=== PATIENT | female | born 1985 | race Caucasian/White ===

== ENCOUNTER 2018-01-20 07:33 | Outpatient (CLI) | payer OTHER ==
--- NOTE | 2018-01-20 10:48 | CT ---
CT OF ABDOMEN AND PELVIS PERFORMED WITHOUT CONTRAST ENHANCEMENT: History: Right sided abdomen pain. Comparison: Exam performed at [facility], 03-03-16. FINDINGS: The lung bases are clear. The liver, spleen, and pancreas regions appear unremarkable. Gallbladder has been removed. Right and left adrenal glands are normal in size. There is a lower pole nonobstructing left renal gustavo culus which measures 6 mm. This is larger than on the previous examination. There is also a right radha ed renal calculus, more oblong in shape, measuring 8-9 mm in maximal dimension. There is right sided hydronephrosis and hydroureter which is not related to this calculus. The dilatation of the right ure ter extends to the pelvic brim. It is difficult to follow the ureter distal to this although I see wh at appears to be a dilated ureter all the way to the bladder. The bladder is distended which may part ially account for this dilatation. The left collecting system is minimally distended, fairly consiste nt with the bladder distention. There is no significant periaortic or mesenteric lymphadenopathy. CT OF PELVIS PERFORMED WITHOUT CONTRAST ENHANCEMENT: The bladder is distended. There is no adenopathy or mass effect. Fat containing periumbilical hernia is seen. No significant bony findings. IMPRESSION: 1. Bilateral renal calculi with right sided hydronephrosis and hydroureter with minimal dilatation of the left collecting system. These changes could just be on the basis of the degree of bladder disten tion although the right sided dilatation is greater than would be expected and is definitely increase d as compared to the 03-03-16 study. 2. Normal appendix. POS: [facility]
== END 2018-01-20 07:34 | disposition home or self-care (01) ==
LOC: CT 07:33
PROVIDERS: ATTEND Urology
DX: N20.0 Calculus of kidney (principal); N13.30 Unspecified hydronephrosis; N13.4 Hydroureter
CPT/HCPCS: 36415; 74176; 84702

== ENCOUNTER 2018-01-22 06:05 | Day surgery (SDC) | payer OTHER ==
[2018-01-21 16:15] VITALS: BMI 29.0
[2018-01-22] MEDS ORDERED: Levofloxacin 500 mg/D5W 100 ml Premix Bag ONE (06:51)
[2018-01-22] MEDS ORDERED: Fentanyl 250 MCG/5 ML VIAL ONE ×2 (06:57→09:13)
[2018-01-22] MEDS ORDERED: Midazolam HCl 2 mg/2 ml Vial ONE (06:57)
[2018-01-22] MEDS ORDERED: Iothalamate Meglumine 60% 50 ML VIAL FS ONE (07:21)
[2018-01-22] MEDS ORDERED: Phenazopyridine HCl 97.5 MG TABLET ONE (08:47)
[2018-01-22] MEDS ORDERED: Oxybutynin 5 MG TAB ONE (08:47)
[2018-01-22] MEDS ORDERED: Ondansetron HCl/PF 4 MG/2 ML Vial IVP PRN (09:00)
[2018-01-22] MEDS ORDERED: Meperidine HCl/PF 25 MG/ML VIAL SLOW IVP PRN (09:00)
[2018-01-22] MEDS ORDERED: Meperidine HCl/PF 25 MG/ML VIAL IV PRN (09:00)
[2018-01-22] MEDS ORDERED: Promethazine HCl 25 MG/ML VIAL IM/IV PRN (09:00)
--- NOTE | 2018-01-22 09:01 | RAD ---
ABDOMEN ONE VIEW: HISTORY: Surgery. Renal calculi. COMPARISON: 01/14/2013 CORRELATION: CT, renal stone, 01/20/2018. FINDINGS: There are surgical clips in the right upper quadrant. The bowel gas pattern is nonspecific. No radi ographic evidence of calcification is projecting over either expected renal silhouette. No calcifica tion is projected over either pelvis. IMPRESSION: Unremarkable one view abdomen. POS: [facility]
--- NOTE | 2018-01-22 09:22 | OP ---
DATE OF PROCEDURE: 01/22/2018 PREOPERATIVE DIAGNOSES: 1. A 32-year-old female with history of recurrent kidney stone, prior history of distal ureteral stone impacted with ureteral narrowing, treated and resolved. 2. Recent right hydronephrosis with no definite stone seen in the distal ureter. 3. Right nonobstructing 8 mm renal pelvic stone, left lower pole 6 mm nonobstructing renal stone. POSTOPERATIVE DIAGNOSES: 1. A 32-year-old female with history of recurrent kidney stone, prior history of distal ureteral stone impacted with ureteral narrowing, treated and resolved. 2. Recent right hydronephrosis with no definite stone seen in the distal ureter. 3. Right nonobstructing 8 mm renal pelvic stone, left lower pole 6 mm nonobstructing renal stone. PROCEDURE: Cystoscopy, right retrograde, 6 x 26 double-J ureteral stent placement with dangler taped to pubic symphysis, rigid and flexible ureteroscopy , flexible pyeloscopy, laser lithotripsy of right renal stone. SURGEON: Kathrin Hernandez D.O. ANESTHESIA: General. COMPLICATIONS: None apparent. SPECIMEN: None. INTRAOPERATIVE FINDINGS: 1. Right hydronephrosis, resolved. 2. No evidence of right ureteral stricture or ureteral stone 3. Right renal pelvic stone migrated into the lower pole. INDICATIONS FOR PROCEDURE AND HISTORY: Luda is a 32-year-old female, with history of distal right impacted ureteral stone. She presented with ureteral narrowing due to impacted stone which has been treated. Subsequently, she had no evidence of hydronephrosis or recurrent ureteral stricture. A work- in appointment was provided to her as she presented with right flank pain. Due to worsening discomfort she presented today for surgical intervention. Staging CT demonstrated nonobstructing right renal pelvic stone, left 6 mm lower pole stone, there was a significant right hydronephrosis to the level of the bladder that was quite distended to the level of mid SI joint with no gross evidence of ureteral calculi. There was mild dilation of the left distal ureter as well, a differential diagnosis of ureteral stricture and possible stone debris, dilation secondary to distended bladder was also discussed with patient. She initially desired observation and advised regarding IVP if progressive discomfort, worsening or surgical intervention. I worked the patient in yesterday as she was not to take her NSAID, had worsening flank pain. She desired to proceed with surgical intervention for retrograde pyelogram to rule out ureteral stricture. The risk and complications and indications reviewed including, but not limited to, bleeding, pain, infection, injury to adjacent organs, urosepsis, stricture formation, possible secondary procedure was reviewed with her in detail and she desired to proceed without reservation. DESCRIPTION OF THE PROCEDURE: After an informed consent is signed, the patient is taken to the operating room, placed in a dorsal lithotomy position with the genital area prepped and draped in the usual surgical sterile fashion. A 21- [place] cystoscope was utilized for cystoscopy which demonstrated normal bladder. The UO's were identified in normal orthotopic position. An open- ended catheter was utilized to perform a retrograde pyelogram, which demonstrated no evidence of filling defect, hydronephrosis, stricture. The right hydronephrosis appeared to be resolved. At this time, I passed a 0.35 sensor wire to the level of the right upper pole without difficulty. A rigid ureteroscopy was then performed to rule out occult stone, stricture. I was able to pass the stone to the level of the mid ureter without any issues. There was no gross evidence of stricture or lesion stones. At this time, a 10 [place] dual-lumen access sheath was passed through the working wire and a second working wire, 0.35 super stiff was placed. The dual-lumen access sheath was then removed, and an 11/13 [place] x 26 cm navigator was passed without difficulty to the level of to the right proximal ureter. A flexible ureteroscope was then advanced over the wire to the level of the renal pelvis. The previous stone had migrated into the mid to lower pole and a 365 micron laser fiber was utilized to engage the stone and fragment into multiple tiny fragments. Using a dust setting, we laser lithotripsied the stone to tiny fragments, too small to basket extract. There was endoscopic clearance of the stone and the nidus that remained was dust-like caliber which she will pass. The ureter was then surveyed which demonstrated no evidence of ureteral mucosa trauma, again no significant stone debris or stricture was noted. A 11/13 [place] navigator passed without any issues. A 6 x 26 double-J ureteral stent with dangler was passed, the bladder was completely emptied and the wire removed. The string was then taped to the patient's pubic symphysis with Tegaderm. She was discharged with Omnicef until followup appointment, AZOGabriela. I did provide narcotics yesterday, therefore refill for narcotics is not provided as she has plenty from yesterday which I provided. She will follow up in my office next Thursday for stent pull and ambrose as a nurse visit, has routine followup with me in March. GISELA
[2018-01-22] MEDS ORDERED: Non-Formulary Medication 1 EACH PO PRN (09:24)
[2018-01-22] MEDS ORDERED: Morphine 2 MG/ML SYRINGE ONE ×2 (09:35→09:48)
[2018-01-22] MEDS ORDERED: Promethazine HCl 25 MG/ML VIAL ONE (09:38)
--- NOTE | 2018-01-22 09:52 | RAD ---
RIGHT RETROGRADE UROGRAM: DATE: 01/22/18. HISTORY: Bilateral renal calculi and right hydronephrosis and hydroureter. Stent placement. COMPARISON: Comparison is made with prior retrograde study on 01/14/13. FINDINGS/IMPRESSION: Initial image demonstrates opacification of the right ureter and right renal collecting system. No p ersistent filling defect is visualized. The final image demonstrates right ureteral stent in place w ith the proximal portion overlying the expected location of the right renal collecting system, distal portion overlying the expected location of the urinary bladder. Contrast within the collecting syst em is not present on the final image. Correlation with intraoperative findings is recommended. POS: [facility]
[2018-01-22] MEDS ORDERED: HYDROcodone/Acetaminophen 5/325 mg Tablet ONE (11:14)
== END 2018-01-22 12:10 | disposition home or self-care (01) ==
LOC: SDC 06:05
PROVIDERS: ATTEND Urology
PROC: 0T768DZ Dilation of Right Ureter with Intraluminal Device, Via Natural or Artificial Opening Endoscopic (ICD-10-PCS; principal; 2018-01-22)
PROC: 0TF38ZZ Fragmentation in Right Kidney Pelvis, Via Natural or Artificial Opening Endoscopic (ICD-10-PCS; principal; 2018-01-22)
DX: N13.2 Hydronephrosis with renal and ureteral calculous obstruction (principal); Z91.048 Other nonmedicinal substance allergy status; Z98.890 Other specified postprocedural states; Z87.442 Personal history of urinary calculi
CPT/HCPCS: 74018; 74420; 96374; C1758; C1769; J1956; J2250; J2270; J2550; J3010; Q9961

== ENCOUNTER 2018-03-08 09:43 | Outpatient (CLI) | payer OTHER | END 2018-03-08 09:44 | disposition home or self-care (01) | LOC: BICRAD 09:43 | PROVIDERS: ATTEND Urology | DX: N20.0 Calculus of kidney (principal) | CPT/HCPCS: 74018 ==

== ENCOUNTER 2018-04-21 09:25 | Day surgery (SDC) | payer OTHER ==
[2018-04-20 13:01] VITALS: BMI 28.2
[2018-04-21] MEDS ORDERED: Oxymetazoline HCl 0.05% ( 15 ML ) ONE ×2 (09:42→11:52)
[2018-04-21 10:22] LABS: BHCG - Serum Negative (NEGATIVE); Pregs Control Background? CLEAR/WHITE (CLR/WHITE); Pregs Control Bar Appear? YES (CONTROL BAR)
[2018-04-21] MEDS ORDERED: Midazolam HCl 2 mg/ml Syrup 5 ml UD Cup ONE (10:26)
[2018-04-21] MEDS ORDERED: Midazolam HCl 2 mg/2 ml Vial ONE (10:26)
[2018-04-21] MEDS ORDERED: Lidocaine 1% w/Epinephrine 1:100K 30 ML VIAL ONE (11:52)
[2018-04-21] MEDS ORDERED: Bacitracin Zinc Ointment 30 gm TUBE ONE (11:52)
[2018-04-21] MEDS ORDERED: Fentanyl 250 MCG/5 ML VIAL ONE (11:55)
[2018-04-21] MEDS ORDERED: Fentanyl 100 MCG/2 ML VIAL ONE ×3 (13:13→14:13)
[2018-04-21] MEDS ORDERED: Ondansetron HCl/PF 4 MG/2 ML Vial ONE (15:10)
[2018-04-21] MEDS ORDERED: Dexamethasone 20 MG/5 ML VIAL ONE (15:10)
[2018-04-21] MEDS ORDERED: PROPOFOL 200 MG/20 ML VIAL ONE (15:10)
[2018-04-21] MEDS ORDERED: Lidocaine 1% PF 5 ML VIAL ONE (15:10)
[2018-04-21] MEDS ORDERED: Morphine 4 MG/ML VIAL ONE ×2 (15:18→15:43)
[2018-04-21] MEDS ORDERED: Dexamethasone 4 mg/ml Vial ONE (16:06)
[2018-04-21] MEDS ORDERED: Hydrocodone-Acetamin 15 ML UDCUP ONE (16:57)
--- NOTE | 2018-04-22 11:59 | OP ---
DATE OF PROCEDURE: 04/21/2018 PREOPERATIVE DIAGNOSES: 1. Chronic rhinosinusitis. 2. Nasal septal deviation. 3. Bilateral inferior turbinate hypertrophy. 4. Nasal obstruction. POSTOPERATIVE DIAGNOSES: 1. Chronic rhinosinusitis. 2. Nasal septal deviation. 3. Bilateral inferior turbinate hypertrophy. 4. Nasal obstruction. PROCEDURES: 1. Bilateral endoscopic sinus surgery, total ethmoidectomies. 2. Bilateral endoscopic sinus surgery, maxillary antrostomies. 3. Bilateral endoscopic sinus surgery, frontal sinusotomy. 4. Bilateral endoscopic sinus surgery, sphenoidotomies. 5. Nasal septoplasty. 6. Bilateral inferior turbinate submucosal resection. SURGEON: Danny Cruz M.D. ESTIMATED BLOOD LOSS: 50 mL. COMPLICATIONS: None. ANESTHESIA: GETA. PROCEDURE IN DETAIL: Patient was taken to the operating room and placed supine on the table. General endotracheal anesthesia was obtained by the Anesthesia staff. Tube was secured in the left lower lip. Patient was then placed in the beach chair position, and Afrin pledgets were placed in the nasal cavity. Injections of 1% lidocaine with 1:100,000 epinephrine were made into the nasal septum as well as the inferior turbinates. Patien t was then prepped and draped in standard surgical fashion for nasal surgery. Following this, the Afrin pledgets were removed. A Ki llian incision was made on the left nasal septum. Submucoperichondrial dissection was performed. The deviated portions of the septum included portions of the cartilage and the bony septum. These isolate d areas were removed using three cutting rongeurs. There was noted to be a large dorsal and caudal stru t, left intact for support of the nose. The mucoperichondrial flaps were then reapproximated using a 4-0 gut stitch. Any straight pieces of cartilage were crushed prior to this and placed between the mucoperichondrial flaps. Following this, the inferior turbinates were then punctured with a submucosa l coblation wand, and submucosal coblations were performed of multiple areas of the inferior portion of the anterior inferior turbinate. Please note that the submucosal microdebrider was used to submucosally resect the anterior and inferi or portions of the inferior turbinates bilaterally. Following this, the 0 degree scope was advanced in the nasal cavity. The middle turbinates were gently medialized using the [place] elevator. The unc inate process was identified bilaterally. Following this, the ball ended probe was used to anteriorl y fracture the uncinate and the microdebrider and the upbiting Blakesley forceps were used to remove the uncinate process bilaterally. Following this, the curved microdebrider blade was then used to id entify the natural maxillary sinus ostia as well as gently widen the natural maxillary sinus ostia bi laterally. Following this, the ethmoidal bulla was identified bilaterally and it was punctured on it s medial and inferior aspect using the straight microdebrider. Following this, the microdebrider and the upbiting Blakesley forceps were used to remove the ethmoidal bulla as well as identify the grand lamella bilaterally. The grand lamella was then punctured into the posterior ethmoid cells working from posterior to anterior, the ethmoidal cells were opened up in a mucosal-sparing technique using a straight microdebrider and curved microdebrider. Following this, the sphenoid sinuses were approach ed through the previous ethmoidectomies. The sphenoid ostia's were widened medially and inferiorly u sing the microdebrider bilaterally. Following this, the curved microdebrider and the 45 degree scope were used to visualize and further resect the frontal recess cells. Following this, the frontal sin us ostia was identified and was gently widened bilaterally using the curved microdebrider. Following this, the nasal cavity was irrigated. Meropacks were placed within the middle meatus. The patient tolerated the procedure well.
== END 2018-04-21 17:15 | disposition home or self-care (01) ==
LOC: SDC 09:25
PROVIDERS: ATTEND Otolaryngology Plastic Surgery within the Head & Neck
PROC: 09TU8ZZ Resection of Right Ethmoid Sinus, Via Natural or Artificial Opening Endoscopic (ICD-10-PCS; principal; 2018-04-21)
PROC: 099Q8ZZ Drainage of Right Maxillary Sinus, Via Natural or Artificial Opening Endoscopic (ICD-10-PCS; principal; 2018-04-21)
PROC: 09BT8ZZ Excision of Left Frontal Sinus, Via Natural or Artificial Opening Endoscopic (ICD-10-PCS; principal; 2018-04-21)
PROC: 09TV8ZZ Resection of Left Ethmoid Sinus, Via Natural or Artificial Opening Endoscopic (ICD-10-PCS; principal; 2018-04-21)
PROC: 09SM0ZZ Reposition Nasal Septum, Open Approach (ICD-10-PCS; principal; 2018-04-21)
PROC: 09CX8ZZ Extirpation of Matter from Left Sphenoid Sinus, Via Natural or Artificial Opening Endoscopic (ICD-10-PCS; principal; 2018-04-21)
PROC: 09BS8ZZ Excision of Right Frontal Sinus, Via Natural or Artificial Opening Endoscopic (ICD-10-PCS; principal; 2018-04-21)
PROC: 09TL0ZZ Resection of Nasal Turbinate, Open Approach (ICD-10-PCS; principal; 2018-04-21)
PROC: 099R8ZZ Drainage of Left Maxillary Sinus, Via Natural or Artificial Opening Endoscopic (ICD-10-PCS; principal; 2018-04-21)
PROC: 09CW8ZZ Extirpation of Matter from Right Sphenoid Sinus, Via Natural or Artificial Opening Endoscopic (ICD-10-PCS; principal; 2018-04-21)
DX: J32.4 Chronic pansinusitis (principal); J34.2 Deviated nasal septum; J34.3 Hypertrophy of nasal turbinates; E03.9 Hypothyroidism, unspecified; Z79.899 Other long term (current) drug therapy
CPT/HCPCS: 36415; 84703; 85014; 96374; 96375; J1100; J2001; J2250; J2270; J2405; J2704; J3010

== ENCOUNTER 2018-10-04 07:48 | Outpatient (CLI) | payer OTHER ==
--- NOTE | 2018-10-04 08:18 | RAD ---
FRONTAL VIEW ABDOMEN KUB: INDICATION: Recurrent urolithiasis. FINDINGS: There is a large volume of retained fecal material throughout the colon. No discrete calculi are vis ualized. IMPRESSION: 1. Large volume retained fecal material of the colon consistent with constipation. 2. There is no discrete calculus overlying the abdomen. POS: [facility]
== END 2018-10-04 07:49 | disposition home or self-care (01) ==
LOC: BICRAD 07:48
PROVIDERS: ATTEND Urology
DX: N20.0 Calculus of kidney (principal); R35.0 Frequency of micturition
CPT/HCPCS: 74018

== ENCOUNTER 2018-10-13 17:47 | Inpatient (IN) | payer OTHER ==
[2018-10-13] MEDS ORDERED: Albuterol Sulfate 2.5 mg/0.5 ml Neb ONE ×2 (18:12)
[2018-10-13] MEDS ORDERED: methylPREDNISolone Sod Succ/PF 125 MG/2 ML VIAL ONE (18:35)
[2018-10-13] MEDS ORDERED: Ketorolac Tromethamine 30 MG/ML VIAL ONE (18:36)
[2018-10-13] MEDS ORDERED: Sterile Water 10 ML ONE (18:36)
[2018-10-13 18:40] LABS: #Basophils 0.1 thou/uL (0.0-0.2); #Eosinphils 0.1 thou/uL (0.0-0.7); #Lymphocytes 1.7 thou/uL (1.20-3.40); #Monocytes 0.7 thou/uL (0.11-0.59); #Neutrophils 5.4 thou/uL (1.40-6.50); %Basophils 0.9 % (0.0-1.0); %Eosinophils 0.8 % (0.0-10.0); %Lymphocytes 21.4 % (21.0-51.0); %Monocytes 8.7 % (0.0-10.0); %Neutrophils 68.3 % (42.0-75.0); Hemoglobin 13.9 g/dL (12.0-16.0); Mean Corpuscular HGB CONC 34.1 g/dL (32.0-36.0); Mean Corpuscular Hemoglobin 27.8 pg (27.0-31.0); Mean Corpuscular Volume 81.7 fL (78.0-98.0); Mean Platelet Volume 8.7 fL (7.4-10.4); Platelet Count 222 thou/uL (130-400); RBC Distribution Width 10.8 % (11.5-14.5); Red Blood Cell (RBC) Count 4.98 mill/uL (4.20-5.40); White Blood Cell (WBC) Count 7.9 thou/uL (4.8-10.8)
[2018-10-13 18:52] LABS: ALT (SGPT) 22 U/L (8-55); AST (SGOT) 22 U/L (5-34); Albumin 4.4 g/dL (3.5-5.0); Alkaline Phosphatase 74 U/L (40-150); Anion Gap 16 mmol/L (10-20); BUN (Urea Nitrogen) 7 mg/dL (7.0-18.7); Bilirubin, Total 0.8 mg/dL (0.2-1.2); CK (CPK) 54 U/L (29-168); Calc. Creatinine Clearance 0 mL/min (70-130); Calcium 9.9 mg/dL (7.8-10.44); Carbon Dioxide 24 mmol/L (22-29); Chloride 101 mmol/L (98-107); Estimated GFR-MDRD 82; Globulin 3.4 g/dL (2.4-3.5); Glucose 103 mg/dL (70-105); Lipase 35 U/L (8-78); Potassium 3.5 mmol/L (3.5-5.1); Protein, Total 7.8 g/dL (6.0-8.3); Sodium 137 mmol/L (136-145)
[2018-10-13 18:53] LABS: CKMB 0.2 ng/mL (0-6.6); Troponin I Less than 0.010 ng/mL (< 0.028)
[2018-10-13] MEDS ORDERED: cefTRIAXone\\ROCEPHIN 2 GM VIAL ONE (19:07)
--- NOTE | 2018-10-13 19:07 | RAD ---
FRONTAL RADIOGRAPH CHEST: 10/13/18 COMPARISON: 10/12/18. HISTORY: Pneumonia and weakness. FINDINGS: there is a subtle hazy area of asymmetric increased density in the right lung base, suspicious for ri ght basilar infiltrate, not significantly changed. There is no pneumothorax or pleural fluid. IMPRESSION: Mild increased density in right lung base suggests right basilar infectious pneumonitis/aspiration. Followup imaging following treatment to document resolution advised. POS: [facility]
[2018-10-13] MEDS ORDERED: Acetaminophen 500 MG TAB ONE (19:08)
[2018-10-13] MEDS ORDERED: Sodium Chloride 0.9% 100 ML ONE (19:08)
[2018-10-13] MEDS ORDERED: Azithromycin 500 MG VIAL ONE (19:47)
[2018-10-13] MEDS ORDERED: Acetaminophen 325 MG TAB PO PRN (21:10)
[2018-10-13] MEDS ORDERED: Sodium Chloride 0.9% 1,000 ML IV SCH (21:11)
[2018-10-13] MEDS ORDERED: Ondansetron PF 4 MG/2 ML Vial IVP PRN (22:52)
[2018-10-13] MEDS ORDERED: Ondansetron ODT 4 MG TAB PO PRN (22:52)
[2018-10-13 22:53] VITALS: BMI 27.3
[2018-10-13] MEDS: Sodium Chloride 0.9% 1,000 ML IV SCH (23:23)
[2018-10-13] MEDS: Ketorolac Tromethamine 30 MG/ML VIAL IVP PRN (23:24)
--- NOTE | 2018-10-14 05:19 | HP ---
CHIEF COMPLAINT: Generalized weakness. HISTORY OF PRESENT ILLNESS: This is a 32-year-old female with past medical history of migraine headaches and kidney stones, presenting with generalized weakness. Per the patient, she was diagnosed with pneumonia thursday prior to this hospital admission, and the patient was started on p.o. antibiotics and seemed to have failed outpatient treatment. The patient stated that it is now getting worse and her symptoms are "all over," and the patient is having generalized weakness. The patient is also endorsing associated chills, chest pain, and headaches. Otherwise, the patient denies any fevers, dizziness, shortness of breath, palpitations, abdominal pain, constipation, or diarrhea. REVIEW OF SYSTEMS: Positive for chills, fatigue, malaise, weakness, wheezes, and chest pain. Otherwise, as documented in the HPI, all other systems were reviewed and are negative. PAST MEDICAL HISTORY: Positive for migraine headaches and kidney stones. FAMILY HISTORY: Reviewed and noncontributory to this visit. PAST SURGICAL HISTORY: Sinus surgery in the past and x3. PSYCHIATRIC HISTORY: No previous psychiatric history. SOCIAL HISTORY: Denies alcohol use. Denies illicit drug use and denies any smoking history. ALLERGIES: THE PATIENT IS ALLERGIC TO STERI-STRIPS AND ADHESIVES. [id number] MEDICATIONS: The patient is on; 1. Amitriptyline. 2. Levothyroxine 50 mcg. 3. Hydrochlorothiazide. PHYSICAL EXAMINATION: VITAL SIGNS: The patient's blood pressure is 114/73, pulse of 88, respiratory rate of 20, and O2 saturation of 100%. GENERAL: The patient is awake, alert, and oriented x3, in no acute distress, lying in bed comfortably, and is able to speak to me in full sentences. HEENT: Normocephalic and atraumatic. Pupils are equal, round, and reactive to light. Extraocular movements are intact. No scleral icterus. No conjunctival pallor. NECK: Trachea is midline. Full range of motion. No JVD. Neck is supple. LUNGS: Clear to auscultation bilaterally. No wheezing, no rales, no rhonchi appreciated. CARDIAC: Positive S1 and S2. Regular rate and rhythm. No murmurs, no gallops , no rubs appreciated. ABDOMEN: Soft, nontender, and nondistended. Positive bowel sounds in all quadrants. EXTREMITIES: The patient has 5/5 upper extremity strength and 5/5 lower extremity strength. No erythema. No edema noted. NEUROLOGIC: Cranial nerves 2 through 12 grossly intact. No neurologic deficit noted. SKIN: Warm, dry, and intact. IMAGING: EKG, normal sinus rhythm at a rate of 91. Chest x-ray showed a right basilar pneumonia. ED COURSE: The patient was given; 1. Rocephin. 2. Erythromycin. 3. Tylenol. 4. Solu-Medrol. 5. DuoNeb. LABORATORY DATA: WBC is 7.9, hemoglobin is 13.9, RDW is 10.8, MCV is 81.7, and platelet is 222. Sodium is 137, potassium is 3.5, chloride is 101, carbon dioxide of 24, anion gap of 16, BUN is 7, creatinine is 0.80, lactic acid of 2.1. AST is 21, ALT 22. Procalcitonin is 0.11. ASSESSMENT AND PLAN: 1. This is a 32-year-old female being admitted for right basilar pneumonia, likely due to inhalation pneumonitis. At this point, we will continue the patient on antibiotics. We will continue IV medications and we will monitor the patient closely. 2. Migraine headaches. We will give the patient Ketorolac p.r.n. for migraine headaches to see if that can alleviate the patient's pain. 3. Deep venous thrombosis and gastrointestinal prophylaxis. 4. Hypertension. We will continue the patient on her home medications. Job ID: [id number] MTDD
[2018-10-14 05:54] LABS: Strep pneumo Urine Ag NEGATIVE (NEGATIVE)
[2018-10-14] MEDS: Levothyroxine Sodium 25 MCG TAB PO SCH (06:00)
[2018-10-14] MEDS: Sodium Chloride 0.9% 1,000 ML IV SCH ×2 (06:03→13:48)
[2018-10-14 06:39] LABS: #Lymphocytes 0.8 thou/uL (1.20-3.40); #Monocytes 0.2 thou/uL (0.11-0.59); #Neutrophils 5.7 thou/uL (1.40-6.50); %Lymphocytes 11.3 % (21.0-51.0); %Monocytes 2.7 % (0.0-10.0); %Neutrophils 85.9 % (42.0-75.0); Hemoglobin 12.9 g/dL (12.0-16.0); Mean Corpuscular HGB CONC 33.2 g/dL (32.0-36.0); Mean Corpuscular Hemoglobin 29.3 pg (27.0-31.0); Mean Corpuscular Volume 88.2 fL (78.0-98.0); Mean Platelet Volume 8.1 fL (7.4-10.4); Platelet Count 247 thou/uL (130-400); Red Blood Cell (RBC) Count 4.41 mill/uL (4.20-5.40); White Blood Cell (WBC) Count 6.6 thou/uL (4.8-10.8)
[2018-10-14 06:42] LABS: Anion Gap 11 mmol/L (10-20); BUN (Urea Nitrogen) 11 mg/dL (7.0-18.7); Calc. Creatinine Clearance 138 mL/min (70-130); Calcium 8.9 mg/dL (7.8-10.44); Carbon Dioxide 22 mmol/L (22-29); Chloride 110 mmol/L (98-107); Estimated GFR-MDRD Greater than 90; Glucose 153 mg/dL (70-105); Potassium 3.6 mmol/L (3.5-5.1); Sodium 139 mmol/L (136-145)
[2018-10-14] MEDS: Famotidine 20 MG TAB PO SCH ×2 (09:14→21:13)
[2018-10-14] MEDS: Hydrochlorothiazide 25 MG TAB PO SCH (09:15)
[2018-10-14] MEDS: Ketorolac Tromethamine 30 MG/ML VIAL IVP PRN (12:02)
[2018-10-14] MEDS: Famotidine/PF 20 mg/2ml Vial SLOW IVP SCH ×2 (12:06→21:15)
--- NOTE | 2018-10-14 12:44 | PDOC.PN ---
- Subjective Encounter Start Date: 10/14/18 Encounter Start Time: 12:40 Subjective: f/u for R-sided PNA community acquired on current Rocephin/Zithromax -: Feels better overall but still weak and coughing. - Objective Resuscitation Status - Order Detail: 10/13/18 22:52 Resuscitation Status Routine Resuscitation Status: FULL: Full Resuscitation MAR Reviewed: Yes Vital Signs & Weight: Vital Signs (12 hours) Temp Pulse Resp BP Pulse Ox 10/14/18 08:00 97.5 F L 83 18 114/65 97 10/14/18 04:00 97 10/14/18 03:29 97.5 F L 70 16 85/53 L 97 Weight Weight 175 lb 0.047 oz I&O: 10/13/18 10/14/18 10/15/18 06:59 06:59 06:59 Output Total 100 Balance -100 Result Diagrams: 10/14/18 06:18 10/14/18 06:18 Additional Labs: Microbiology 10/13/18 18:30 Venous blood - Right Hand Blood Culture - Preliminary Specimen has been received and culture in progress. No Growth to date. 10/13/18 18:25 Venous blood - Left Arm Blood Culture - Preliminary Specimen has been received and culture in progress. No Growth to date. Laboratory Tests 10/13/18 10/13/18 10/13/18 18:25 22:03 23:39 Lactic Acid 2.1 2.0 Procalcitonin 0.11 Ur Strep pneumoniae Ag 10/14/18 05:33 Lactic Acid Procalcitonin Ur Strep pneumoniae Ag NEGATIVE Radiology Reviewed by me: Yes (PCXR - R basilar infiltrate) Phys Exam - Physical Examination Constitutional: NAD HEENT: PERRLA, sclera anicteric, oral pharynx no lesions Neck: no nodes, no JVD, supple, full ROM Respiratory: no wheezing, no rales, no rhonchi, clear to auscultation bilateral S1, S2 Cardiovascular: RRR, no significant murmur, no rub, gallop Gastrointestinal: soft, non-tender, no distention, positive bowel sounds Musculoskeletal: no edema, pulses present Neurological: normal sensation, moves all 4 limbs Psychiatric: A&O x 3 Skin: normal turgor, cap refill <2 seconds Dx/Plan (1) Bacterial pneumonia Code(s): J15.9 - UNSPECIFIED BACTERIAL PNEUMONIA Status: Acute Comment: Likely gram + cocci, continue Rocephin/Zithromax, IVF's, general supportive mgmt (2) Generalized weakness Code(s): R53.1 - WEAKNESS Status: Acute Comment: Supportive mgmt (3) Hypothyroidism Code(s): E03.9 - HYPOTHYROIDISM, UNSPECIFIED Status: Chronic Comment: Continue Levothyroxine 50mcg daily (4) Migraine headache Code(s): G43.909 - MIGRAINE, UNSP, NOT INTRACTABLE, WITHOUT STATUS MIGRAINOSUS Status: Chronic Comment: Continue Amitriptyline, Toradol - Plan plan discussed w/ family, continue antibiotics, out of bed/ambulate, DVT proph w /SCDs Stable overall -: Continue Rocephin/Zithromax -: Continue IVF's another 24h -: Toradol prn for fever/myalgias -: Likely home in am 10/15/18 * .
[2018-10-14] MEDS ORDERED: cefTRIAXone\\ROCEPHIN 2 GM in Sodium Chloride 0.9% 100 ML IVPB SCH (18:00)
[2018-10-14 19:16] VITALS: TEMP 97.8
[2018-10-14] MEDS ORDERED: Azithromycin 500 MG in Sodium Chloride 0.9% 250 ML 250 ML IVPB SCH (20:00)
[2018-10-14] MEDS ORDERED: Amitriptyline HCl 25 MG TAB PO SCH (21:00)
[2018-10-14] MEDS ORDERED: Calcium Carbonate 500 MG ChewTAB PO PRN (22:35)
[2018-10-15] MEDS: Sodium Chloride 0.9% 1,000 ML IV SCH (02:49)
[2018-10-15] MEDS: Levothyroxine Sodium 25 MCG TAB PO SCH (06:27)
[2018-10-15 07:52] VITALS: BP 100/61
[2018-10-15] MEDS: Famotidine 20 MG TAB PO SCH (08:06)
[2018-10-15] MEDS: Hydrochlorothiazide 25 MG TAB PO SCH (08:06)
[2018-10-15] MEDS: Famotidine/PF 20 mg/2ml Vial SLOW IVP SCH (12:13)
--- NOTE | 2018-10-15 13:24 | DIS ---
DATE OF ADMISSION: 10/13/2018 DATE OF DISCHARGE: 10/15/2018 PRIMARY CARE PHYSICIAN: Dr. Antonio Chou. DISCHARGE DISPOSITION: Home. PRIMARY DISCHARGE DIAGNOSES: Community-acquired bacterial pneumonia, generalized weakness due to problem #1. SECONDARY DISCHARGE DIAGNOSES: Migraine headache, hypothyroidism, hypertension. PRIMARY PROCEDURE/OPERATION: None. RADIOLOGICAL INVESTIGATION: Chest x-ray on admission showed right lower lobe infiltration. SIGNIFICANT LABORATORY DATA: WBC 6.6, hemoglobin 12.9, and platelet 247. Sodium 139, potassium 3.6, BUN 11, creatinine 0.72, and calcium 8.9. LFT normal. Lactic acid 2.0. Cardiac enzyme negative. Procalcitonin 0.11. Lipase 35. Urine streptococcus pneumoniae antigen negative. Blood culture negative. DISCHARGE MEDICATIONS: 1. Omnicef 300 mg twice daily for 7 days. 2. Synthroid 50 mcg p.o. daily. 3. Hydrochlorothiazide 25 mg p.o. daily. 4. Amitriptyline 50 mg p.o. at bedtime. CONTRAINDICATION: None. CODE STATUS: Full code. INPATIENT HOSPITAL ADMISSIONS OFFICER: None. ALLERGIES: ADHESIVE. DISCHARGE PLAN: Posthospital, the patient will follow up with primary care physician in 1 week. The patient's primary care physician will repeat chest x-ray upon followup visit. HOSPITAL COURSE: A 33-year-old female with above mentioned medical problem, who was admitted by Dr. Perera. Please see his H and P for further detail. The patient came to emergency room with generalized weakness. She was having cough, shortness of breath, subjective fever after upper respiratory infection for the last 2 to 3 days. She was not getting better and condition was not improving, and that is why she came to emergency room. In the emergency room, she had chest x-ray, which showed right lower lobe infiltration. She was treated with Rocephin and azithromycin while in the hospital. Her home medication was continued. The patient was given IV fluid for hydration. The patient remain afebrile while in hospital and she was saturating normal and her weakness resolved. She was able to ambulate by herself and she was tolerating p.o. well. I have reviewed her old record today and I have seen and examined the patient at bedside today. PHYSICAL EXAMINATION: VITAL SIGNS: Currently, temperature 97.8, pulse 87, respiratory rate 16, saturation 100% on room air, and blood pressure 109/70. Weight 175 pounds. GENERAL: The patient is currently alert, awake. No obvious acute distress. HEAD: Normocephalic and atraumatic. EYES: Pupils are round and reactive to light. Extraocular muscle intact. ENT: Oropharynx within normal limits. Moist mucous membrane. NECK: Supple. No JVD. No thyromegaly. No carotid bruits. No jugular venous distention. LUNGS: Clear to auscultation without any rhonchi or rales. CARDIAC: S1 and S2, regular without any murmur. ABDOMEN: Soft and benign without any tenderness. EXTREMITIES: No edema. NEUROLOGIC: Nonfocal examination. We have changed the antibiotic therapy to Omnicef upon discharge. New medication prescription sent to her pharmacy. TOTAL TIME SPENT: Total time spent on discharge today, 31 minutes. Job ID: [id number]
[2018-10-19 02:12] LABS: Mycoplasma pneumoniae IgG AB Less than 100 U/mL (0-99); Mycoplasma pneumoniae IgM AB Less than 770 U/mL (0-769)
== END 2018-10-15 13:05 | disposition home or self-care (01) | DRG 195 ==
LOC: SCSER 17:47 → ONC 20:06
PROVIDERS: ADMIT Family Medicine; ATTEND Family Medicine
DX: J15.9 Unspecified bacterial pneumonia (principal); G43.909 Migraine, unspecified, not intractable, without status migrainosus; Z87.442 Personal history of urinary calculi; Z91.048 Other nonmedicinal substance allergy status; I10 Essential (primary) hypertension; E03.9 Hypothyroidism, unspecified
CPT/HCPCS: 36415; 71045; 80048; 80053; 82553; 83605; 83690; 84145; 84484; 85025; 87040; 87899; 93005; 96361; 96365; 96375; A4216; J0456; J0696; J1885; J2930; J7050; J7611

== ENCOUNTER 2019-03-21 12:52 | Outpatient (CLI) | payer OTHER ==
--- NOTE | 2019-03-21 14:57 | MRI ---
MRI CERVICAL SPINE: Date: 03/21/19 PROVIDED CLINICAL HISTORY: Cervical root disorders not elsewhere classified. FINDINGS: Cervical alignment appears normal. Vertebral body heights appear preserved. No focal concerning regio nal marrow signal abnormality is evident. The visualized posterior fossa, cervicomedullary junction, and cervical spinal cord demonstrate normal signal and morphology. There is no significant central ca nal or foraminal narrowing apparent. No significant degenerative changes are evident. IMPRESSION: Normal MRI of cervical spine. POS: [facility]
--- NOTE | 2019-03-21 14:57 | MRI ---
MRI Brain WO Con: 03/21/2019 12:00 AM CLINICAL HISTORY: Headache. COMPARISON: None. FINDINGS: Extra axial spaces: Normal in size and morphology for the patient's age. Acute infarction: None. Ventricular system: Normal in size and morphology for the patient's age. Basal cisterns: Normal. Cerebral parenchyma: Normal. Midline shift: None. Cerebellum: Normal. Brainstem: Normal. Paranasal sinuses:Scattered mucosal thickening. IMPRESSION:No acute intracranial abnormality.
== END 2019-03-21 12:53 | disposition home or self-care (01) ==
LOC: MRI 12:52
PROVIDERS: ATTEND Specialist
DX: G54.2 Cervical root disorders, not elsewhere classified (principal); R51 Headache
CPT/HCPCS: 70551; 72141

== ENCOUNTER 2019-04-13 09:02 | Outpatient (CLI) | payer OTHER ==
--- NOTE | 2019-04-13 10:52 | RAD ---
AP ABDOMINAL RADIOGRAPH: DATE: 04/13/2019. HISTORY: Followup kidney stones. Calculus of kidney. COMPARISON: 10/04/2018. FINDINGS: Limited visualized lung bases are clear. Surgical clips are again seen overlying the right upper cirilo drant. Bowel gas pattern is nonspecific. Renal shadows are mostly obscured, but no definite calculus is see n overlying the expected location of the renal collecting systems or along the course of either urete r. Views of the abdomen are not significantly changed compared to the prior exam. IMPRESSION: 1. Nonspecific bowel gas pattern. 2. No obvious renal or ureteral calculus is visualized on this exam. POS: [facility]
== END 2019-04-13 09:03 | disposition home or self-care (01) ==
LOC: SCSRAD 09:02
PROVIDERS: ATTEND Urology
DX: N20.0 Calculus of kidney (principal)
CPT/HCPCS: 74018

== ENCOUNTER 2019-07-24 18:47 | Emergency (ER) | payer OTHER ==
[2019-07-24 19:39] LABS: #Basophils 0.1 thou/uL (0.0-0.2); #Eosinphils 0.1 thou/uL (0.0-0.7); #Lymphocytes 0.8 thou/uL (1.20-3.40); #Monocytes 0.8 thou/uL (0.11-0.59); #Neutrophils 8.7 thou/uL (1.40-6.50); %Basophils 0.7 % (0.0-1.0); %Eosinophils 0.6 % (0.0-10.0); %Monocytes 7.5 % (0.0-10.0); %Neutrophils 83.1 % (42.0-75.0); Hemoglobin 13.9 g/dL (12.0-16.0); Mean Corpuscular HGB CONC 33.5 g/dL (32.0-36.0); Mean Corpuscular Hemoglobin 28.6 pg (27.0-31.0); Mean Corpuscular Volume 85.6 fL (78.0-98.0); Mean Platelet Volume 8.1 fL (7.4-10.4); Platelet Count 247 thou/uL (130-400); RBC Distribution Width 11.2 % (11.5-14.5); Red Blood Cell (RBC) Count 4.85 mill/uL (4.20-5.40); White Blood Cell (WBC) Count 10.4 thou/uL (4.8-10.8)
[2019-07-24] MEDS ORDERED: diphenhydrAMINE 50 MG/ML VIAL ONE (19:43)
[2019-07-24] MEDS ORDERED: Ondansetron PF 4 MG/2 ML Vial ONE (19:43)
[2019-07-24] MEDS ORDERED: Prochlorperazine 10 MG/2 ML VIAL ONE (19:43)
[2019-07-24 19:50] LABS: BHCG - Serum Negative (NEGATIVE); Pregs Control Background? CLEAR/WHITE (CLR/WHITE); Pregs Control Bar Appear? YES (CONTROL BAR)
[2019-07-24 19:51] LABS: ALT (SGPT) 16 U/L (8-55); AST (SGOT) 21 U/L (5-34); Albumin 4.2 g/dL (3.5-5.0); Alkaline Phosphatase 47 U/L (40-150); Anion Gap 16 mmol/L (10-20); BUN (Urea Nitrogen) 10 mg/dL (7.0-18.7); Bilirubin, Total 1.3 mg/dL (0.2-1.2); Calc. Creatinine Clearance 0 mL/min (70-130); Calcium 8.8 mg/dL (7.8-10.44); Carbon Dioxide 23 mmol/L (22-29); Chloride 101 mmol/L (98-107); Estimated GFR-MDRD 79; Globulin 2.7 g/dL (2.4-3.5); Glucose 112 mg/dL (70-105); Lipase 30 U/L (8-78); Magnesium 1.7 mg/dL (1.6-2.6); Protein, Total 6.9 g/dL (6.0-8.3); Sodium 137 mmol/L (136-145)
[2019-07-24 19:53] LABS: Potassium 2.9 mmol/L (3.5-5.1)
[2019-07-24 21:00] LABS: Bilirubin Negative (Negative); Blood, Urine Negative (Negative); Clarity Clear (Clear); Glucose, Urine (Dipstick) Negative (Negative); Leukocyte Trace (Negative); Nitrite Negative (Negative); Protein, Urine (Dipstick) Trace mg/dL (Neg-Trace)
[2019-07-24 21:05] LABS: Bacteria/HPF Rare-Few HPF (None Seen); RBC/HPF None Seen HPF (0-3); Squamous Epithelial 0-3 HPF (0-3); WBC/HPF 0-3 HPF (0-3)
[2019-07-24 21:06] LABS: Yeast-Budding 1+ HPF (None Seen)
== END 2019-07-24 21:22 | disposition home or self-care (01) ==
LOC: SCSER 18:47
DX: K52.9 Noninfective gastroenteritis and colitis, unspecified (principal); G43.909 Migraine, unspecified, not intractable, without status migrainosus; E03.9 Hypothyroidism, unspecified; F41.9 Anxiety disorder, unspecified; F32.9 Major depressive disorder, single episode, unspecified; Z79.899 Other long term (current) drug therapy
CPT/HCPCS: 36415; 80053; 81003; 81015; 83690; 83735; 84703; 85025; 96365; 96375; J0780; J1200; J2405

== ENCOUNTER 2019-09-16 12:24 | Outpatient (CLI) | payer OTHER ==
--- NOTE | 2019-09-16 12:59 | RAD ---
Chest 2 views HISTORY: Cough. Chest pain. COMPARISON: 10/13/2018. FINDINGS: Cardiac silhouette and pulmonary vasculature are unremarkable. Mediastinum is midline. No c onfluent airspace consolidation, pneumothorax, or pleural fluid. IMPRESSION: No active cardiopulmonary abnormalities are demonstrated.
== END 2019-09-16 12:25 | disposition home or self-care (01) ==
LOC: SCSRAD 12:24
PROVIDERS: ATTEND Family Medicine
DX: R05 Cough (principal)
CPT/HCPCS: 71046

== ENCOUNTER 2019-10-10 14:04 | Outpatient (CLI) | payer OTHER ==
--- NOTE | 2019-10-10 15:00 | MMO ---
Bilateral MAMMO Bilat Diag [facility]. CLINICAL HISTORY: Patient is 33 years old and is seen for diagnostic exam and pain in the right breast. The patient has the following family history of breast cancer: maternal grandmother, at age 70, malignant (generic). The patient has no personal history of cancer. VIEWS: The views performed were: bilateral craniocaudal with tomosynthesis; bilateral mediolateral oblique with tomosynthesis; and bilateral mediolateral with tomosynthesis. This study has been interpreted with the assistance of computer-aided detection. MAMMOGRAM FINDINGS: There are scattered fibroglandular densities. There are no suspicious masses, suspicious calcifications, or new areas of architectural distortion. IMPRESSION: THERE IS NO MAMMOGRAPHIC EVIDENCE OF MALIGNANCY. A ROUTINE FOLLOW-UP MAMMOGRAM AT AGE 38 IS RECOMMENDED. THE RESULTS OF THIS EXAM WERE SENT TO THE PATIENT. ACR BI-RADS Category 1 - Negative MAMMOGRAPHY NOTE: 1. A negative mammogram report should not delay a biopsy if a dominant of clinically suspicious mass is present. 2. Approximately 10% to 15% of breast cancers are not detected by mammography. 3. Adenosis and dense breasts may obscure an underlying neoplasm. Reported by: VERA RIVERS MD Electonically Signed: [id number]
== END 2019-10-10 14:05 | disposition home or self-care (01) ==
LOC: BICMAMMO 14:04
PROVIDERS: ATTEND Obstetrics & Gynecology
DX: N64.4 Mastodynia (principal); Z80.3 Family history of malignant neoplasm of breast
CPT/HCPCS: 77066; G0279

== ENCOUNTER 2019-11-02 12:20 | Outpatient (CLI) | payer OTHER ==
--- NOTE | 2019-11-02 14:34 | MRI ---
MRI BREAST W W/O CONT BILAT History: N 64.4 mastodynia right breast Comparison: Mammogram October 10, 2019 Findings: Multiplanar multisequence MRI of the breasts was performed prior to and after the intraveno us administration of contrast. The exam was reviewed on an independent 3-D workstation. There are scattered fibroglandular densities. Mild background parenchymal enhancement. No abnormal enhancing mass. No concerning nodular or masslike enhancement. Incidental note is made of a right sternalis muscle. No internal mammary or axillary adenopathy. No significant pericardial or pleural fluid. Hepatic pare nchyma is normal. The nipple area complex is normal. Impression: BI-RADS Category 1: Negative. Recommend routine screening mammogram at age 38.
== END 2019-11-02 12:21 | disposition home or self-care (01) ==
LOC: BICMRI 12:20
PROVIDERS: ATTEND Obstetrics & Gynecology
DX: N64.4 Mastodynia (principal); Z80.3 Family history of malignant neoplasm of breast
CPT/HCPCS: A9577; C8908

== ENCOUNTER 2019-12-06 09:17 | Outpatient (CLI) | payer OTHER ==
--- NOTE | 2019-12-06 09:51 | RAD ---
Frontal and lateral imaging of the thoracic spine: 12/06/2019 COMPARISON: None HISTORY: Pain FINDINGS: There is significant dextroscoliosis within the thoracic spine measuring approximately 24 d egrees from T5-6 through T11-12. Thoracic pedicles appear intact on frontal imaging. Lateral exam demonstrates no significant anterolisthesis or retrolisthesis. No acute osseous abnormality. Swimmer' s lateral view demonstrates an intact cervicothoracic junction. IMPRESSION: Dextroscoliosis of the thoracic spine.
== END 2019-12-06 09:18 | disposition home or self-care (01) ==
LOC: BICRAD 09:17
PROVIDERS: ATTEND Family Medicine
DX: R07.89 Other chest pain (principal); G89.29 Other chronic pain; M41.9 Scoliosis, unspecified
CPT/HCPCS: 72072

== ENCOUNTER 2020-04-26 08:00 | Outpatient (CLI) | payer OTHER ==
--- NOTE | 2020-04-26 08:18 | RAD ---
Exam: Abdomen 2 views HISTORY: Renal calculi. COMPARISON: 04/13/2019 FINDINGS: Cholecystomy clips and intrauterine device are noted Nonspecific bowel gas pattern No suspicious densities in the abdomen or pelvis. No radiographic evidence of nephrolithiasis or uret erolithiasis. No acute osseous abnormalities IMPRESSION: No radiographic evidence of nephrolithiasis or ureterolithiasis.
== END 2020-04-26 08:01 | disposition home or self-care (01) ==
LOC: BICRAD 08:00
PROVIDERS: ATTEND Urology
DX: N20.0 Calculus of kidney (principal)
CPT/HCPCS: 74018

== ENCOUNTER 2020-08-28 07:43 | Outpatient (CLI) | payer OTHER ==
--- NOTE | 2020-08-28 09:39 | ULT ---
ULTRASOUND RETROPERITONEUM COMPLETE: (RENAL) DATE: 08/28/2020 HISTORY: 34-year-old female with calculus of kidney. FINDINGS: The right kidney measures 12 x 4 x 5 cm. The left kidney measures 12.5 x 5 x 5.5 cm. Both kidneys h ave normal cortical thickness and normal cortical echogenicity. There is no hydronephrosis. The uri nary bladder is almost empty and therefore cannot be evaluated. Multiple tiny hyperechoic nonshadowing foci are visualized in the parapelvic portions of bilateral ki dneys, especially the left. Most of these are probably normal blood vessel branches. It is possible t hat some of them could represent calculi. Noncontrast CT is the most sensitive, and best modality to detect nephrolithiasis, rather than ultrasound. IMPRESSION: 1. No hydronephrosis. 2. Empty bladder. jnr POS: [facility]
--- NOTE | 2020-08-28 10:14 | RAD ---
KUB 1 VIEW: Date: 08/28/2020 HISTORY: Calculus of kidney. FINDINGS: IUD in place. Evidence for prior cholecystectomy. Scattered fecal material in the colon. No evidence for overt renal or calculus. IMPRESSION: No overt renal or calculus. Stable from prior study. POS: [facility]
== END 2020-08-28 07:44 | disposition home or self-care (01) ==
LOC: BICULT 07:43
PROVIDERS: ATTEND Urology
DX: N20.0 Calculus of kidney (principal)
CPT/HCPCS: 74018; 76770

== ENCOUNTER 2021-04-29 08:18 | Outpatient (CLI) | payer OTHER | END 2021-04-29 08:19 | disposition home or self-care (01) | LOC: BICRAD 08:18 | PROVIDERS: ATTEND Urology | DX: N20.0 Calculus of kidney (principal) | CPT/HCPCS: 74018 ==

== ENCOUNTER 2021-09-09 16:21 | Outpatient (CLI) | payer OTHER | END 2021-09-09 16:22 | disposition home or self-care (01) | LOC: BICRAD 16:21 | PROVIDERS: ATTEND Physician Assistant | DX: R10.9 Unspecified abdominal pain (principal); R05.9 Cough, unspecified | CPT/HCPCS: 71046; 74018 ==

== ENCOUNTER 2021-09-17 08:08 | Outpatient (CLI) | payer OTHER ==
[2021-09-17] MEDS ORDERED: Iopamidol 370 76% 100 ML VIAL ONE (10:26)
== END 2021-09-17 08:09 | disposition home or self-care (01) ==
LOC: CT 08:08
PROVIDERS: ATTEND Family Medicine
DX: M25.511 Pain in right shoulder (principal); R79.1 Abnormal coagulation profile; Z90.710 Acquired absence of both cervix and uterus
CPT/HCPCS: 71275; Q9967

== ENCOUNTER 2021-12-25 08:11 | Outpatient (CLI) | payer BC | END 2021-12-25 08:12 | disposition home or self-care (01) | LOC: BICRAD 08:11 | PROVIDERS: ATTEND Family Medicine | DX: M25.541 Pain in joints of right hand (principal) ==

== ENCOUNTER 2022-03-18 14:00 | Outpatient (CLI) | payer BC | END 2022-03-18 14:01 | disposition home or self-care (01) | LOC: CT 14:00 | PROVIDERS: ATTEND Urology | DX: N20.0 Calculus of kidney (principal); R30.0 Dysuria; R91.1 Solitary pulmonary nodule; Z90.49 Acquired absence of other specified parts of digestive tract | CPT/HCPCS: 74176; 81001; 87077; 87086; 87186 ==

== ENCOUNTER 2022-05-16 08:35 | Outpatient (CLI) | payer BC | END 2022-05-16 08:36 | disposition home or self-care (01) | LOC: BICRAD 08:35 | PROVIDERS: ATTEND Urology | DX: N20.0 Calculus of kidney (principal) | CPT/HCPCS: 74018 ==

== ENCOUNTER 2022-07-25 08:06 | Outpatient (CLI) | payer BC | END 2022-07-25 08:07 | disposition home or self-care (01) | LOC: RAD 08:06 | PROVIDERS: ATTEND Family Medicine | DX: S90.122D Contusion of left lesser toe(s) without damage to nail, subsequent encounter (principal) ==

== ENCOUNTER 2022-10-24 07:51 | Observation (INO) | payer BC ==
[2022-10-23 13:51] VITALS: BMI 23.7
[2022-10-24] MEDS ORDERED: Lidocaine 1% MPF 2 ML VIAL ONE (08:26)
[2022-10-24] MEDS ORDERED: CEFAZOLIN 2 GM VIAL ONE (08:26)
[2022-10-24] MEDS ORDERED: Sodium Chloride 0.9% 100 ML ONE (08:26)
[2022-10-24 09:58] LABS: SARS-CoV-2 NAA Rapid Test Not Detected (NotDetected)
[2022-10-24] MEDS ORDERED: Midazolam HCl 2 mg/2 ml Vial ONE (10:44)
[2022-10-24] MEDS ORDERED: Thrombin 5000 UNITS/5 ML VIAL ONE (10:47)
[2022-10-24] MEDS ORDERED: Vancomycin 1 GM VIAL ONE (10:47)
[2022-10-24] MEDS ORDERED: fentaNYL PF 100 MCG/2 ML SYRINGE ONE ×2 (10:59→13:58)
[2022-10-24] MEDS ORDERED: HYDROmorphone 2 MG/ML VIAL ONE (11:00)
[2022-10-24] MEDS ORDERED: Dexamethasone 20 MG/5 ML VIAL ONE (11:10)
[2022-10-24] MEDS ORDERED: Rocuronium Bromide 10 MG/ML (10ML VIAL) ONE (11:10)
[2022-10-24] MEDS ORDERED: PROPOFOL 200 MG/20 ML VIAL ONE (11:10)
[2022-10-24] MEDS ORDERED: Ketorolac Tromethamine 30 MG/ML VIAL ONE (11:10)
[2022-10-24] MEDS ORDERED: Ondansetron PF 4 MG/2 ML Vial ONE (11:10)
[2022-10-24] MEDS ORDERED: SUGAMMADEX SODIUM 200 MG/2 ML VIAL ONE (13:12)
[2022-10-24] MEDS ORDERED: diphenhydrAMINE 25 MG CAP PO PRN (13:22)
[2022-10-24] MEDS ORDERED: HYDROcodone/Acetaminophen 7.5/325 mg Tablet PO PRN (13:22)
[2022-10-24] MEDS ORDERED: traMADol HCl 50 MG TAB PO PRN (13:22)
[2022-10-24] MEDS ORDERED: Acetaminophen 325 MG TAB PO PRN (13:22)
[2022-10-24] MEDS ORDERED: Ondansetron PF 4 MG/2 ML Vial IVP PRN (13:22)
[2022-10-24] MEDS ORDERED: tiZANidine HCl 4 MG TAB PO PRN (13:24)
[2022-10-24] MEDS ORDERED: hydrALAZINE 20 MG/ML VIAL SLOW IVP PRN (13:27)
[2022-10-24] MEDS ORDERED: Morphine Sulfate 2 MG/ML SYRINGE SLOW IVP PRN (13:49)
[2022-10-24] MEDS ORDERED: Promethazine HCl 25 MG/ML VIAL IM PRN (13:49)
[2022-10-24] MEDS ORDERED: HYDROmorphone 2 MG/ML VIAL SLOW IVP PRN (13:49)
[2022-10-24] MEDS ORDERED: PACU-Morphine 4MG/ML VIAL SLOW IVP PRN (13:49)
[2022-10-24] MEDS ORDERED: Promethazine HCl 25 MG/ML VIAL IVPB PRN (13:49)
[2022-10-24] MEDS ORDERED: Ondansetron HCl/PF 4 MG/2 ML Vial IVP PRN (13:49)
[2022-10-24] MEDS ORDERED: Morphine 4 MG/ML VIAL SLOW IVP PRN (14:00)
[2022-10-24] MEDS ORDERED: DICLOFENAC POTASSIUM 50 MG PO PRN (14:03)
[2022-10-24] MEDS ORDERED: Zolpidem Tartrate 5 MG TAB PO PRN (14:11)
[2022-10-24] MEDS ORDERED: Promethazine HCl 25 MG/ML VIAL ONE (14:21)
[2022-10-24] MEDS: Sodium Chloride 0.9% 1,000 ML IV SCH (15:00)
[2022-10-24] MEDS: Acetaminophen/Codeine 30-300mg Tablet PO PRN (19:13)
[2022-10-24] MEDS: CEFAZOLIN 2 GM in Sodium Chloride 0.9% 100 ML IVPB SCH (20:53)
[2022-10-24] MEDS ORDERED: DULoxetine 60 MG CAP PO SCH (21:00)
[2022-10-24] MEDS ORDERED: Non-Formulary Item 1 EACH (Progesterone, Micronized [Progesterone] 200 MG Capsule) PO SCH (21:00)
[2022-10-25] MEDS: CEFAZOLIN 2 GM in Sodium Chloride 0.9% 100 ML IVPB SCH (04:03)
[2022-10-25] MEDS: Sodium Chloride 0.9% 1,000 ML IV SCH ×2 (05:39→05:40)
[2022-10-25] MEDS ORDERED: Levothyroxine Sodium 50 MCG TAB PO SCH (06:00)
[2022-10-25] MEDS: Acetaminophen/Codeine 30-300mg Tablet PO PRN (08:45)
[2022-10-25] MEDS ORDERED: Bupropion 150 MG XL TAB PO SCH (09:00)
[2022-10-25] MEDS ORDERED: Hydrochlorothiazide 25 MG TAB PO SCH (09:00)
[2022-10-25 09:36] VITALS: TEMP 98.1
[2022-10-25 17:16] VITALS: BP 119/78
== END 2022-10-25 12:10 | disposition home or self-care (01) ==
LOC: SDC 07:51 → SURG B 14:52
PROVIDERS: ADMIT Surgery; ATTEND Surgery
PROC: 01NB0ZZ Release Lumbar Nerve, Open Approach (ICD-10-PCS; principal; 2022-10-24)
PROC: 01NR0ZZ Release Sacral Nerve, Open Approach (ICD-10-PCS; 2022-10-24)
PROC: 0SB20ZZ Excision of Lumbar Vertebral Disc, Open Approach (ICD-10-PCS; 2022-10-24)
PROC: 0SB40ZZ Excision of Lumbosacral Disc, Open Approach (ICD-10-PCS; 2022-10-24)
DX: M51.17 Intervertebral disc disorders with radiculopathy, lumbosacral region (principal); M51.16 Intervertebral disc disorders with radiculopathy, lumbar region; M48.061 Spinal stenosis, lumbar region without neurogenic claudication; E03.9 Hypothyroidism, unspecified; Z79.890 Hormone replacement therapy; Z79.899 Other long term (current) drug therapy; Z91.048 Other nonmedicinal substance allergy status; Z20.822 Contact with and (suspected) exposure to COVID-19
CPT/HCPCS: J1100; J1170; J1885; J2250; J2405; J2550; J2704; J3370; J3490; J7050; U0002

== ENCOUNTER 2023-05-18 11:02 | Outpatient (CLI) | payer BC | END 2023-05-18 11:03 | disposition home or self-care (01) | LOC: SCSMRI 11:02 | PROVIDERS: ATTEND Surgery | DX: M47.26 Other spondylosis with radiculopathy, lumbar region (principal); N20.0 Calculus of kidney; M47.817 Spondylosis without myelopathy or radiculopathy, lumbosacral region; M47.815 Spondylosis without myelopathy or radiculopathy, thoracolumbar region; Z98.890 Other specified postprocedural states | CPT/HCPCS: 72110; 72148; 74018 ==

== ENCOUNTER 2023-12-08 07:49 | Outpatient (CLI) | payer BC | END 2023-12-08 07:50 | disposition home or self-care (01) | LOC: BICMAMMO 07:49 | PROVIDERS: ATTEND Family Medicine | DX: Z12.31 Encounter for screening mammogram for malignant neoplasm of breast (principal); Z80.3 Family history of malignant neoplasm of breast | CPT/HCPCS: 77063; 77067 ==

== ENCOUNTER 2024-07-15 10:32 | Outpatient (CLI) | payer BC | END 2024-07-15 10:33 | disposition home or self-care (01) | LOC: BICRAD 10:32 | PROVIDERS: ATTEND Urology | DX: N20.0 Calculus of kidney (principal); E83.52 Hypercalcemia; M41.9 Scoliosis, unspecified; R19.8 Other specified symptoms and signs involving the digestive system and abdomen; M19.09 Primary osteoarthritis, other specified site; Z98.890 Other specified postprocedural states | CPT/HCPCS: 74018 ==

== ENCOUNTER 2024-11-01 07:57 | Outpatient (CLI) | payer BC | END 2024-11-01 07:58 | disposition home or self-care (01) | LOC: SCSMRI 07:57 | PROVIDERS: ATTEND Family Medicine | DX: M47.816 Spondylosis without myelopathy or radiculopathy, lumbar region (principal); E03.9 Hypothyroidism, unspecified | CPT/HCPCS: 70553; 72100; 76376 ==

== ENCOUNTER 2024-11-03 14:31 | Outpatient (CLI) | payer BC | END 2024-11-03 14:32 | disposition home or self-care (01) | LOC: SCSMRI 14:31 | PROVIDERS: ATTEND Nurse Practitioner Family | DX: M54.16 Radiculopathy, lumbar region (principal); M51.27 Other intervertebral disc displacement, lumbosacral region | CPT/HCPCS: 72148 ==

== ENCOUNTER 2024-12-12 11:33 | Outpatient (CLI) | payer BC | END 2024-12-12 11:34 | disposition home or self-care (01) | LOC: BICMAMMO 11:33 | PROVIDERS: ATTEND Family Medicine | DX: Z12.31 Encounter for screening mammogram for malignant neoplasm of breast (principal); N64.89 Other specified disorders of breast; Z80.3 Family history of malignant neoplasm of breast | CPT/HCPCS: 77063; 77067 ==

== ENCOUNTER 2024-12-14 08:19 | Outpatient (CLI) | payer BC | END 2024-12-14 08:20 | disposition home or self-care (01) | LOC: BICMAMMO 08:19 | PROVIDERS: ATTEND Family Medicine | DX: N64.89 Other specified disorders of breast (principal) | CPT/HCPCS: G0279 ==

== ENCOUNTER 2025-07-12 07:28 | Day surgery (SDC) | payer BC ==
[2025-06-21 12:20] VITALS: BMI 22.6
[2025-07-12] MEDS ORDERED: fentaNYL PF 100 MCG/2 ML SYRINGE ONE (07:48)
[2025-07-12] MEDS ORDERED: Rocuronium Bromide 10 MG/ML (10ML VIAL) ONE (07:48)
[2025-07-12] MEDS ORDERED: PROPOFOL 20 ML ONE (07:48)
[2025-07-12] MEDS ORDERED: Lidocaine 1% PF 5 ML VIAL ONE (07:48)
[2025-07-12] MEDS ORDERED: LevoFLOXacin D5W 500 mg (100 mL) BAG ONE (08:45)
[2025-07-12] MEDS ORDERED: Ondansetron PF 4 MG/2 ML Vial ONE (09:31)
[2025-07-12] MEDS ORDERED: Ketorolac Tromethamine 30 MG (1 mL) VIAL ONE (09:31)
[2025-07-12] MEDS ORDERED: SUGAMMADEX SODIUM 200 MG/2 ML VIAL ONE (09:55)
[2025-07-12] MEDS ORDERED: Etomidate 40 MG (20 mL) VIAL ONE (10:36)
[2025-07-12] MEDS ORDERED: Oxybutynin 5 MG TAB ONE (10:44)
== END 2025-07-12 13:11 | disposition home or self-care (01) ==
LOC: SDC 07:28
PROVIDERS: ATTEND Urology
PROC: 0T778DZ Dilation of Left Ureter with Intraluminal Device, Via Natural or Artificial Opening Endoscopic (ICD-10-PCS; principal; 2025-07-12)
PROC: 0TC18ZZ Extirpation of Matter from Left Kidney, Via Natural or Artificial Opening Endoscopic (ICD-10-PCS; principal; 2025-07-12)
DX: N20.0 Calculus of kidney (principal); Z87.59 Personal history of other complications of pregnancy, childbirth and the puerperium; Z90.49 Acquired absence of other specified parts of digestive tract; Z91.048 Other nonmedicinal substance allergy status
CPT/HCPCS: 52332; C9761; 74018; 74420; 82365; 88300; C1747; C1758; C1769; C2617; J1100; J1885; J1956; J2405; J2704; Q9967

== ENCOUNTER 2025-08-22 10:32 | Outpatient (CLI) | payer BC | END 2025-08-22 10:33 | disposition home or self-care (01) | LOC: SCSMRI 10:32 | PROVIDERS: ATTEND Nurse Practitioner Family | DX: M54.16 Radiculopathy, lumbar region (principal); M48.061 Spinal stenosis, lumbar region without neurogenic claudication; M48.07 Spinal stenosis, lumbosacral region | CPT/HCPCS: 72148 ==

== ENCOUNTER 2025-09-28 08:05 | Outpatient (CLI) | payer BC | END 2025-09-28 08:06 | disposition home or self-care (01) | LOC: SCSRAD 08:05 | PROVIDERS: ATTEND Internal Medicine Rheumatology | DX: M54.2 Cervicalgia (principal); M46.1 Sacroiliitis, not elsewhere classified; L60.8 Other nail disorders; M53.3 Sacrococcygeal disorders, not elsewhere classified | CPT/HCPCS: 72040; 72202 ==